=== PATIENT | female | born 1985 | race Caucasian/White ===

== ENCOUNTER 2017-05-10 08:18 | Inpatient (IN) | payer OTHER ==
[2017-05-10] MEDS: Lactated Ringers 1,000 ML IV SCH (23:25)
[2017-05-11] MEDS ORDERED: Ondansetron 4 MG/2 ML SDV IV PRN (00:19)
[2017-05-11] MEDS ORDERED: Sodium Chloride 0.9% 10 ML Syringe FLUSH PRN ×2 (00:19→08:00)
[2017-05-11] MEDS ORDERED: Promethazine 25 MG/ML SDV IM PRN (00:19)
[2017-05-11] MEDS ORDERED: Oxytocin/Normal Saline 30 UNIT/500 ML BAG IV SCH ×2 (00:30→08:15)
[2017-05-11] MEDS: Omeprazole 20 MG Cap.CR PO SCH ×2 (00:52→18:29)
--- NOTE | 2017-05-11 01:27 | HP ---
CHIEF COMPLAINT: "My water broke." HISTORY OF PRESENT ILLNESS: Ms. Montero is a 31-year-old, 3, para 2-0-0- 2 female, who reports to the [facility] in [place] with complaint of rupture of membranes of clear fluid. This occurred about 2200 hours. Her last menstrual period, 08/10/2016; EDC, 05/17/2017; EGA, 39 weeks' gestation. She states that she had a trial of an external cephalic version because she was breech and this failed. She was going to have a section on 05/16/2017. We had an ultrasound accomplished after arrival and she was noted to be vertex. She has some GERD symptoms but other than that, no nausea, vomiting, or diarrhea. No fever or chills. No vaginal bleeding or regular contractions. No hematochezia, hematemesis, or hematuria. No dysuria, frequency, or urgency with urination. No leg pain, leg edema, abdominal pain, or back pain. Her has gone quite well with no complications or concerns. PAST MEDICAL HISTORY: She has history of acne, anxiety, depression, asthma, GERD, low back pain, migraine headaches, and panic attacks. No history of hypertension, diabetes, thyroid disease, seizure disorder, thromboembolic disease, or blood transfusions. No history of breast lesions. FAMILY HISTORY: Positive for hypertension, hypertriglyceridemia, thyroid disease, multiple myeloma, diabetes, and colon cancer. SOCIAL HISTORY: The patient is , spouse is Carmelo. She works for [employer] in [place]. She denies any tobacco use, alcohol use, or illicit drug use. OBSTETRICAL HISTORY: On 06/29/2010; delivery of a viable female , weighing 3175 g at 39 and 5/7 weeks' gestation via normal spontaneous vaginal delivery. On 12/10/2013; delivery of a viable male infant, vacuum-assisted vaginal delivery of a 3965 g male . LABORATORY DATA: Blood type A positive. Antibody screen negative. Rubella immune. RPR nonreactive. Hepatitis B surface antigen negative. HIV nonreactive. Group B strep vaginal culture negative. MEDICATIONS: 1. Omeprazole 20 mg daily. 2. vitamin with iron one tab daily. ALLERGIES: Ceclor, theophylline, aspirin causes stomach upset. PAST SURGICAL HISTORY: Appendectomy, July of 2016. REVIEW OF SYSTEMS: All pertinent positive and negative review of systems per HPI. All other systems reviewed and are negative. The 10-point review of systems discussed with the patient, she has no issues. OBJECTIVE: General: A well-developed, well-nourished female, in no acute distress. Vital Signs: Stable. Afebrile. HEENT: Unremarkable. PERRLA. Neck: Supple without adenopathy. No thyromegaly. Lungs: Clear to auscultation. No wheezing, rhonchi, or rales noted. Cardiovascular: Regular rate and rhythm without murmurs. Abdomen: Soft, gravid, nontender. heart tones 130s to 140s. Occasional contraction noted. Category 1 strip with good accelerations. Back: No CVA tenderness. : Cervix is 2 cm dilated, 70% effaced, -2 station. Mid posterior vertex presentation. Extremities: No edema, erythema, or tenderness noted. ASSESSMENT: 1. A 39 weeks' intrauterine . 2. Spontaneous rupture of membranes. 3. Vertex presentation. PLAN: 1. Admit to Labor and Delivery. 2. We will start Pitocin augmentation once she has been ruptured for 3 hours and if she is not gabe regularly. 3. Expectant management otherwise, expecting a vaginal delivery. [facility] /[id number]
[2017-05-11] MEDS: Lactated Ringers 1,000 ML IV SCH (04:35)
[2017-05-11] MEDS ORDERED: fentaNYL 100 MCG/2 ML SDV ONE (04:37)
--- NOTE | 2017-05-11 05:13 | PCM.PRNOTE ---
- Free Text/Narrative Note: Requested to provide analgesia to full term patient in severe pain. Upon entering the room, pt is lying left side complaining of severe abdominal pain and discomfort. Procedure was discussed with pt including adverse outcomes and expectations. Pt consented to analgesia, SAB/IT. Pt placed into a sitting position. Landmarks for SAB/IT were identified and marked. Back was prepped with betadine x3. A sterile, transparent, fenistrated drape was applied. Excess betadine was removed. Using 1 mL of a 2% lidocaine solution, a skin wheel was placed at the L3/L4 interspace. Using a 24 ga pencan spinal needle (4 inch), needle was inserted until positive for CSF. Negative for heme or paresthesias. Injected fentanly 20 mcg, sufenta 10 mcg, and 10 mg of a 0.75% bupivicaine solution with an epi wash. Pt was placed left lateral position. There were zero complications or adverse outcomes.
[2017-05-11] MEDS ORDERED: Benzocaine/Menthol 20%-0.5% Spray 56 GM Canister TOP PRN (08:00)
[2017-05-11] MEDS ORDERED: Acetaminophen 325 MG Tab PO PRN (08:00)
[2017-05-11] MEDS ORDERED: Zolpidem 5 MG Tab PO PRN (08:00)
[2017-05-11] MEDS ORDERED: Carboprost Tromethamine 250 MCG/1 ML Amp IM PRN (08:00)
[2017-05-11] MEDS ORDERED: Misoprostol 400 MCG (4 X 100 MCG TAB) RECTAL PRN (08:00)
--- NOTE | 2017-05-11 08:00 | PCM.PNLD ---
Labor Progress Note - VS & Meds Vital Signs: Last Vital Signs Temp 97.8 F 05/11/17 07:00 Pulse 80 05/11/17 07:15 Resp 20 05/11/17 07:15 BP 146/81 H 05/11/17 07:15 Pulse Ox 98 05/11/17 06:30 Active Medications: Current Medications Lactated Ringer's (Ringers, Lactated) 1,000 mls @ 125 mls/hr IV ASDIRECTED SABINA Last Admin: 05/11/17 04:35 Dose: 125 mls/hr Oxytocin/Sodium Chloride (Pitocin In Ns 30 Unit/500 Ml) 30 unit in 500 mls @ 2 mls/hr IV TITRATE SABINA; 2 MUNITS/MIN PRN Reason: Protocol Last Titration: 05/11/17 07:43 Dose: 14 mls/hr Omeprazole (Omeprazole) 20 mg PO Q12H SABINA Last Admin: 05/11/17 00:52 Dose: 20 mg Ondansetron HCl (Zofran) 4 mg IV Q4H PRN PRN Reason: Nausea/Vomiting Last Admin: 05/11/17 04:24 Dose: 4 mg Promethazine HCl (Phenergan) 25 mg IM Q4H PRN PRN Reason: Nausea/Vomiting Sodium Chloride (Saline Flush) 10 ml FLUSH ASDIRECTED PRN PRN Reason: Keep Vein Open Discontinued Medications Fentanyl (Sublimaze) Confirm Administered Dose 100 mcg .ROUTE .STK-MED ONE Stop: 05/11/17 04:38 Sufentanil Citrate (Sufenta) Confirm Administered Dose 50 mcg .ROUTE .STK-MED ONE Stop: 05/11/17 04:39 - Uterine Contractions Uterine Monitoring Mode: External [place] Contraction Frequency (min): 1.5-3 Contraction Duration (sec): 60-100 Contraction Intensity: Strong Uterine Resting Tone: Soft - Monitoring Heart Rate (FHR) Baseline: 140 Heart Rate (FHR) Variability: Moderate (6-25 bmp) Accelerations: Present, 15x15 Decelerations: Variable, Intermittent (<50% x 20 min) Strip Review: Category I - Vaginal Exam Dilation (cm): 7 Effacement (Percent): 80 Station: -2 Cervical Position: Midposition Sterile Vaginal Exam Performed By: Ramy Chapa - Labor Progress (Free Text) Labor Progress: Patient is uncomfortable with contractions despite having a intrathecal for pain control. Pitocin at 12 mu/min. No fever or chills. No nausea, vomiting or diarrhea. She is breathing through contractions and starting to feel some pressure. Continue present care. Expect vaginal delivery soon. Fetus is OP.
--- NOTE | 2017-05-11 08:05 | PCM.PNLD ---
Labor Progress Note - VS & Meds Vital Signs: Last Vital Signs Temp 98.8 F 05/11/17 04:55 Pulse 79 05/11/17 06:45 Resp 16 05/11/17 06:45 BP 140/82 05/11/17 06:45 Pulse Ox 98 05/11/17 06:30 Active Medications: Current Medications Lactated Ringer's (Ringers, Lactated) 1,000 mls @ 125 mls/hr IV ASDIRECTED SABINA Last Admin: 05/11/17 04:35 Dose: 125 mls/hr Oxytocin/Sodium Chloride (Pitocin In Ns 30 Unit/500 Ml) 30 unit in 500 mls @ 2 mls/hr IV TITRATE SABINA; 2 MUNITS/MIN PRN Reason: Protocol Last Titration: 05/11/17 07:16 Dose: 12 mls/hr Omeprazole (Omeprazole) 20 mg PO Q12H SABINA Last Admin: 05/11/17 00:52 Dose: 20 mg Ondansetron HCl (Zofran) 4 mg IV Q4H PRN PRN Reason: Nausea/Vomiting Last Admin: 05/11/17 04:24 Dose: 4 mg Promethazine HCl (Phenergan) 25 mg IM Q4H PRN PRN Reason: Nausea/Vomiting Sodium Chloride (Saline Flush) 10 ml FLUSH ASDIRECTED PRN PRN Reason: Keep Vein Open Discontinued Medications Fentanyl (Sublimaze) Confirm Administered Dose 100 mcg .ROUTE .STK-MED ONE Stop: 05/11/17 04:38 Sufentanil Citrate (Sufenta) Confirm Administered Dose 50 mcg .ROUTE .STK-MED ONE Stop: 05/11/17 04:39 - Uterine Contractions Uterine Monitoring Mode: External [place] Contraction Frequency (min): 2-2.5 Contraction Duration (sec): 70-80 Contraction Intensity: Moderate Uterine Resting Tone: Soft - Monitoring Heart Rate (FHR) Baseline: 140 Heart Rate (FHR) Variability: Moderate (6-25 bmp) Accelerations: Present, 15x15 Decelerations: Variable, Intermittent (<50% x 20 min) Strip Review: Category I - Vaginal Exam Dilation (cm): 7 Effacement (Percent): 80 Station: -2 Cervical Position: Midposition Sterile Vaginal Exam Performed By: Ramy Chapa
[2017-05-11] MEDS ORDERED: Lidocaine 1% 30 ML SDV INJECT ONE (08:08)
--- NOTE | 2017-05-11 08:36 | PCM.DEL ---
L & D Note - General Info Date of Service: 05/11/17 (39 3/7 week intrauterine ) Mother's Due Date: 05/16/17 - Delivery Note Labor: Augmented by Oxytocin Delivery Outcome: Livebirth Infant Delivery Method: Spontaneous Vaginal Delivery-Single Infant Delivery Mode: Spontaneous Presentation: Left Occiput Anterior (ELOY) Nuchal Cord: None Anesthesia Type: Intrathecal Amniotic Fluid Description: Clear Placenta: Intact, Spontaneous Cord: 3 Vessels Estimated Blood Loss: 300 Resuscitation Needed: No : Suctioned, Bulb Syringe, Stimulated, Warmed, [place] Used, Warmer Used Provider: Ramy Chapa Score 1 min: 9 Score 5 min: 9 Second Stage Interventions: Reports: Second Nurse Assessed Progress of Descent, Second Nurse Reviewed Contraction Pattern, Second Nurse Reviewed Heart Tones, Encouragement Given, Pushing Effectively, Pushing, Feet in Foot Rests, Pushing, Knee Chest Position Delivery Comments (Free Text/Narrative):: DATE OF PROCEDURE:- 05/11/2017 TIME: 0818 . ELOY, Viable male over intact perineum Cord 3 vessel not around neck. Placenta delivered by simple expression intact. Labia, Vagina and cervix inspected and intact. Mother and infant in good condition. Weight- 7 lbs 8oz, Length- 19 3/4 inches 's- 9 and 9. Mother recovers for 2 hours and the infant taken to the nursery for recovery. No complications. - Patient Data Vitals - Most Recent: Last Vital Signs Temp 97.8 F 05/11/17 07:00 Pulse 80 05/11/17 07:15 Resp 20 05/11/17 07:15 BP 146/81 H 05/11/17 07:15 Pulse Ox 98 05/11/17 06:30 Weight - Most Recent: 220 lb I&O - Last 24 Hours: Intake & Output 05/10/17 05/11/17 05/11/17 22:59 06:59 14:59 Intake Total 1000 Balance 1000 Lab Results Last 24 Hours: Laboratory Results - last 24 hr 05/10/17 Range/Units 23:20 WBC 8.6 (5.0-10.0) 10^3/uL RBC 3.86 L (4.2-5.4) 10^6/uL Hgb 12.0 (12.0-16.0) g/dL Hct 35.0 L (37.0-47.0) % MCV 90.7 (80-100) fL MCH 31.1 (27.0-34.0) pg MCHC 34.3 (33.0-35.0) g/dL Plt Count 183 (150-450) 10^3/uL Neut % (Auto) 59.9 (42.2-75.2) % Lymph % (Auto) 29.1 (20.5-50.1) % Graves % (Auto) 10.1 H (2-8) % Eos % (Auto) 0.6 L (1.0-3.0) % Baso % (Auto) 0.3 (0.0-1.0) % Med Orders - Current: Current Medications Acetaminophen (Tylenol) 650 mg PO Q6H PRN PRN Reason: mild pain or fever Benzocaine/Menthol (Dermoplast Pain Relief [place]) 0 gm TOP Q4H PRN PRN Reason: Perineal comfort measures Carboprost Tromethamine (Hemabate Ds) 250 mcg IM ASDIRECTED PRN PRN Reason: Excessive vaginal bleeding Docusate Sodium (Colace) 100 mg PO BID PRN PRN Reason: Constipation Ferrous Sulfate (Ferrous Sulfate) 325 mg PO WITHBREAKFAST SABINA Lactated Ringer's (Ringers, Lactated) 1,000 mls @ 125 mls/hr IV ASDIRECTED SABINA Last Admin: 05/11/17 04:35 Dose: 125 mls/hr Oxytocin/Sodium Chloride (Pitocin In Ns 30 Unit/500 Ml) 30 unit in 500 mls @ 2 mls/hr IV TITRATE SABINA; 2 MUNITS/MIN PRN Reason: Protocol Last Titration: 05/11/17 07:43 Dose: 14 mls/hr Oxytocin/Sodium Chloride (Pitocin In Ns 30 Unit/500 Ml) 30 unit in 500 mls @ 999 mls/hr IV TITRATE SABINA; 999 MUNITS/MIN PRN Reason: Protocol Ibuprofen (Motrin) 800 mg PO Q8H PRN PRN Reason: Mild Pain or Fever Misoprostol (Cytotec) 800 mcg RECTAL ONETIME PRN PRN Reason: Hemorrhage Omeprazole (Omeprazole) 20 mg PO Q12H SABINA Last Admin: 05/11/17 00:52 Dose: 20 mg Ondansetron HCl (Zofran) 4 mg IV Q4H PRN PRN Reason: Nausea/Vomiting Last Admin: 05/11/17 04:24 Dose: 4 mg Prenat Multivit/[place]/Iron/Folic Ac ( Plus Iron) 1 each PO DAILY SABINA Promethazine HCl (Phenergan) 25 mg IM Q4H PRN PRN Reason: Nausea/Vomiting Simethicone (Simethicone) 80 mg PO Q4H PRN PRN Reason: Gas Sodium Chloride (Saline Flush) 10 ml FLUSH ASDIRECTED PRN PRN Reason: Keep Vein Open Sodium Chloride (Saline Flush) 10 ml FLUSH ASDIRECTED PRN PRN Reason: Keep Vein Open Zolpidem Tartrate (Ambien) 5 mg PO BEDTIME PRN PRN Reason: Insomnia Discontinued Medications Fentanyl (Sublimaze) Confirm Administered Dose 100 mcg .ROUTE .STK-MED ONE Stop: 05/11/17 04:38 Lidocaine HCl (Xylocaine-Mpf 1%) 30 ml INJECT ONETIME ONE Stop: 05/11/17 08:09 Sufentanil Citrate (Sufenta) Confirm Administered Dose 50 mcg .ROUTE .STK-MED ONE Stop: 05/11/17 04:39 - Problem List Review Problem List Initiated/Reviewed/Updated: Yes - My Orders Last 24 Hours: My Active Orders 05/10/17 23:10 OB Ltd 1 or More Fetus [US] Routine 05/11/17 00:19 Patient Status [ADT] Routine Bedrest Bathroom Privileges [RC] ASDIRECTED Heart Tones [RC] INTERMITTENT May Shower [RC] ASDIRECTED Notify Provider Vital Signs OB [RC] ASDIRECTED Notify Provider [RC] PRN Up ad Katia [RC] ASDIRECTED Vital Signs [RC] PER UNIT ROUTINE Ondansetron [Zofran] 4 mg IV Q4H PRN Promethazine [Phenergan] 25 mg IM Q4H PRN Sodium Chloride 0.9% [Saline Flush] 10 ml FLUSH ASDIRECTED PRN Peripheral IV Insertion Adult [OM.PC] Routine Resuscitation Status Routine 05/11/17 00:25 Peripheral IV Care [RC] 08,20 05/11/17 00:30 Lactated Ringers [Ringers, Lactated] 1,000 ml IV ASDIRECTED Omeprazole 20 mg PO Q12H Oxytocin/Normal Saline [Pitocin in NS 30 UNIT/500 ML] 30 unit in 500 ml IV TITRATE 05/11/17 08:00 Up ad Katia [RC] ASDIRECTED Acetaminophen [Tylenol] 650 mg PO Q6H PRN Benzocaine/Menthol [Dermoplast Pain Relief [place]] See Dose Instructions TOP Q4H PRN Carboprost Tromethamine [Hemabate DS] 250 mcg IM ASDIRECTED PRN Docusate Sodium [Colace] 100 mg PO BID PRN Ferrous Sulfate 325 mg PO WITHBREAKFAST Ibuprofen [Motrin] 800 mg PO Q8H PRN Misoprostol [Cytotec] 800 mcg RECTAL ONETIME PRN Simethicone 80 mg PO Q4H PRN Sodium Chloride 0.9% [Saline Flush] 10 ml FLUSH ASDIRECTED PRN Zolpidem [Ambien] 5 mg PO BEDTIME PRN Assess Lochia [WOMSER] Per Unit Routine Assess Uterine Involution [WOMSER] Per Unit Routine Breast Pump [WOMSER] Per Unit Routine Ice Therapy [OM.PC] Per Unit Routine Perineal Care [OM.PC] Per Unit Routine Saline Lock Insert [OM.PC] Urgent Sitz Bath [OM.PC] Per Unit Routine 05/11/17 08:01 Peripheral IV Discontinue [OM.PC] Routine 05/11/17 08:15 Oxytocin/Normal Saline [Pitocin in NS 30 UNIT/500 ML] 30 unit in 500 ml IV TITRATE 05/11/17 09:00 Vit with Ca/FA/Iron [ Plus Iron] 1 each PO DAILY 05/11/17 Breakfast Clear Liquid Diet [DIET] 05/11/17 Lunch Regular Diet [DIET] 05/12/17 08:00 CBC W/O DIFF,HEMOGRAM [HEME] Routine
[2017-05-11] MEDS: Ibuprofen 800 MG Tab PO PRN ×2 (10:29→20:59)
[2017-05-11] MEDS: Simethicone 80 MG Tab.Chew PO PRN ×2 (10:29→18:29)
[2017-05-11] MEDS: Prenatal Multivitamin with Calcium/Folic Acid/Iron Tab PO SCH (10:29)
[2017-05-11] MEDS: Docusate Sodium 100 MG Cap PO PRN ×2 (10:30→20:59)
[2017-05-11] MEDS: Ferrous Sulfate 325 MG Tab PO SCH (18:29)
[2017-05-12] MEDS: Omeprazole 20 MG Cap.CR PO SCH ×2 (02:32→14:28)
[2017-05-12 08:07] VITALS: BP 114/71
[2017-05-12] MEDS: Ferrous Sulfate 325 MG Tab PO SCH (09:23)
[2017-05-12] MEDS: Prenatal Multivitamin with Calcium/Folic Acid/Iron Tab PO SCH (09:23)
[2017-05-12] MEDS: Ibuprofen 800 MG Tab PO PRN (09:23)
[2017-05-12] MEDS: Docusate Sodium 100 MG Cap PO PRN (09:23)
--- NOTE | 2017-05-12 11:06 | PCM.PNPP ---
- General Info Date of Service: 05/12/17 (PPD # 1 S/P ) Functional Status: Reports: Pain Controlled, Tolerating Diet, Ambulating - Review of Systems General: Reports: No Symptoms HEENT: Reports: No Symptoms Pulmonary: Reports: No Symptoms Cardiovascular: Reports: No Symptoms Gastrointestinal: Reports: No Symptoms Genitourinary: Reports: No Symptoms Musculoskeletal: Reports: No Symptoms Skin: Reports: No Symptoms Neurological: Reports: No Symptoms Psychiatric: Reports: No Symptoms - General Info Date of Service: 05/12/17 (PPD # 1 S/P ) - Patient Data Vital Signs - Most Recent: Last Vital Signs Temp 98.0 F 05/12/17 08:00 Pulse 76 05/12/17 08:00 Resp 18 05/12/17 08:00 BP 114/71 05/12/17 08:00 Pulse Ox 100 05/12/17 08:00 Weight - Most Recent: 220 lb Lab Results - Last 24 Hours: Laboratory Results - last 24 hr 05/12/17 Range/Units 06:05 WBC 8.2 (5.0-10.0) 10^3/uL RBC 3.75 L (4.2-5.4) 10^6/uL Hgb 11.5 L (12.0-16.0) g/dL Hct 35.0 L (37.0-47.0) % MCV 93.3 (80-100) fL MCH 30.7 (27.0-34.0) pg MCHC 32.9 L (33.0-35.0) g/dL Plt Count 146 L (150-450) 10^3/uL Med Orders - Current: Current Medications Acetaminophen (Tylenol) 650 mg PO Q6H PRN PRN Reason: mild pain or fever Last Admin: 05/11/17 18:30 Dose: 650 mg Benzocaine/Menthol (Dermoplast Pain Relief [place]) 0 gm TOP Q4H PRN PRN Reason: Perineal comfort measures Carboprost Tromethamine (Hemabate Ds) 250 mcg IM ASDIRECTED PRN PRN Reason: Excessive vaginal bleeding Docusate Sodium (Colace) 100 mg PO BID PRN PRN Reason: Constipation Last Admin: 05/12/17 09:23 Dose: 100 mg Ferrous Sulfate (Ferrous Sulfate) 325 mg PO WITHBREAKFAST SABINA Last Admin: 05/12/17 09:23 Dose: 325 mg Lactated Ringer's (Ringers, Lactated) 1,000 mls @ 125 mls/hr IV ASDIRECTED SABINA Last Admin: 05/11/17 04:35 Dose: 125 mls/hr Oxytocin/Sodium Chloride (Pitocin In Ns 30 Unit/500 Ml) 30 unit in 500 mls @ 2 mls/hr IV TITRATE SABINA; 2 MUNITS/MIN PRN Reason: Protocol Last Titration: 05/11/17 09:50 Dose: Infused Oxytocin/Sodium Chloride (Pitocin In Ns 30 Unit/500 Ml) 30 unit in 500 mls @ 999 mls/hr IV TITRATE SABINA; 999 MUNITS/MIN PRN Reason: Protocol Ibuprofen (Motrin) 800 mg PO Q8H PRN PRN Reason: Mild Pain or Fever Last Admin: 05/12/17 09:23 Dose: 800 mg Misoprostol (Cytotec) 800 mcg RECTAL ONETIME PRN PRN Reason: Hemorrhage Omeprazole (Omeprazole) 20 mg PO Q12H SABINA Last Admin: 05/12/17 02:32 Dose: Not Given Ondansetron HCl (Zofran) 4 mg IV Q4H PRN PRN Reason: Nausea/Vomiting Last Admin: 05/11/17 04:24 Dose: 4 mg Prenat Multivit/[employer]/Iron/Folic Ac ( Plus Iron) 1 each PO DAILY SABINA Last Admin: 05/12/17 09:23 Dose: 1 each Promethazine HCl (Phenergan) 25 mg IM Q4H PRN PRN Reason: Nausea/Vomiting Simethicone (Simethicone) 80 mg PO Q4H PRN PRN Reason: Gas Last Admin: 05/11/17 18:29 Dose: 80 mg Sodium Chloride (Saline Flush) 10 ml FLUSH ASDIRECTED PRN PRN Reason: Keep Vein Open Sodium Chloride (Saline Flush) 10 ml FLUSH ASDIRECTED PRN PRN Reason: Keep Vein Open Zolpidem Tartrate (Ambien) 5 mg PO BEDTIME PRN PRN Reason: Insomnia Discontinued Medications Fentanyl (Sublimaze) Confirm Administered Dose 100 mcg .ROUTE .STK-MED ONE Stop: 05/11/17 04:38 Last Admin: 05/11/17 09:57 Dose: Not Given Lidocaine HCl (Xylocaine-Mpf 1%) 30 ml INJECT ONETIME ONE Stop: 05/11/17 08:09 Last Admin: 05/11/17 10:09 Dose: Not Given Sufentanil Citrate (Sufenta) Confirm Administered Dose 50 mcg .ROUTE .STK-MED ONE Stop: 05/11/17 04:39 Last Admin: 05/11/17 09:58 Dose: Not Given - Infant Interaction Infant Disposition, : in Room with Family Infant Interaction: Holding Infant Feeding: Bottle Fed Infant Support Person: - Recovery Exam Fundal Tone: Firm Fundal Level: 1 Fingerbreadths Below Umbilicus Fundal Placement: Midline Lochia Amount: Small Lochia Color: Rubra/Red Perineum Description: Intact, Minimal Bruising/Swelling Episiotomy/Laceration: None Bladder Status: Nonpalpable, Voiding Urinary Elimination: Voided - Exam General: Alert, Oriented, Cooperative, No Acute Distress HEENT: Pupils Equal, Pupils Reactive, EOMI, Mucous Membr. Moist/[place] Neck: Supple Lungs: Clear to Auscultation, Normal Respiratory Effort Cardiovascular: Regular Rate, Regular Rhythm, No Murmurs GI/Abdominal Exam: Normal Bowel Sounds, Soft, Non-Tender, No Distention Extremities: Normal Inspection, Normal Range of Motion, Non-Tender, No Pedal Edema Skin: Warm, Dry, Intact Neurological: No New Focal Deficit Psy/Mental Status: Alert, Normal Affect, Normal Mood - Problem List & Annotations (1) Normal vaginal delivery SNOMED Code(s): 90848042 Code(s): O80 - ENCOUNTER FOR FULL-TERM UNCOMPLICATED DELIVERY Status: Acute Current Visit: Yes - Problem List Review Problem List Initiated/Reviewed/Updated: Yes - My Orders Last 24 Hours: My Active Orders 05/11/17 Lunch Regular Diet [DIET] 05/12/17 10:56 Ready for Discharge [RC] PER UNIT ROUTINE - Assessment Assessment:: PPD # 1 S/P Doing well Ready for discharge - Plan Plan:: Discharge to home Follow-up with Dr. Joya at recheck All questions answered. Motrin/Tylenol for discomfort.
[2017-05-12] MEDS ORDERED: fentaNYL 100 MCG/2 ML SDV ITHECAL ONE (12:49)
--- NOTE | 2017-05-13 07:19 | DISCH ---
INDICATION FOR ADMISSION: Ms. Montero is a 31-year-old, 3, para 2-0-0-2 female, who reported to [facility] in [facility] with spontaneous rupture of membranes at 39 weeks' gestation. She was started on Pitocin augmentation and tolerated her labor quite well. Once she got uncomfortable, intrathecal anesthesia was given. Once she got to complete, she had a normal spontaneous vaginal delivery of a viable male , weighing 7 pounds 8 ounces, 19-3/4 inches long with Apgars of 9 at 1 minute, 9 at 5 minutes. She recovered. The infant went to the nursery. No complications occurred throughout her hospital stay. She was afebrile. Vital signs are stable. She tolerated her diet well and ambulated quite well. She was discharged to home on day #1. LABORATORY AND DIAGNOSTIC STUDIES: 05/10/2017; WBC 8.6, hemoglobin 12.0, hematocrit 35, and platelet count 183,000. 05/12/2017; WBC 8.2, hemoglobin 11.5, hematocrit 35.0, and platelet count 146,000. DISCHARGE INSTRUCTIONS: 1. Discharge to home. 2. Follow up with Dr. Alisia Joya at 6-week checkup or sooner if problems develop. 3. No douching, tampons, or intercourse for 6 weeks. 4. Discharge instructions including activity, followup, medications, and diet were discussed with the patient. She understands these and is willing to comply with these. 5. Motrin 800 mg, 1 tab every 6 to 8 hours p.r.n. for pain. 6. Tylenol p.r.n. for pain. DISCHARGE DIAGNOSES: 1. A 39-week intrauterine . 2. Spontaneous rupture of membranes. 3. Pitocin augmentation. 4. Normal spontaneous vaginal delivery of a viable male , weighing 7 pounds 8 ounces, 19-3/4 inches long with Apgars of 9 at 1 minute and 9 at 5 minutes. 5. Intrathecal anesthesia. [facility] /[id number]
== END 2017-05-12 12:50 | disposition home or self-care (01) | DRG 775 ==
LOC: DL.OB 08:18 → OBSVTOIN 05-11 08:18
PROVIDERS: ADMIT Obstetrics & Gynecology; ATTEND Obstetrics & Gynecology
PROC: 10E0XZZ Delivery of Products of Conception, External Approach (ICD-10-PCS; principal; 2017-05-11)
PROC: 4A1HXFZ Monitoring of Products of Conception, Cardiac Rhythm, External Approach (ICD-10-PCS; 2017-05-11)
DX: O42.02 Full-term premature rupture of membranes, onset of labor within 24 hours of rupture (principal); Z3A.39 39 weeks gestation of pregnancy; Z37.0 Single live birth; O75.89 Other specified complications of labor and delivery; K21.9 Gastro-esophageal reflux disease without esophagitis
CPT/HCPCS: 36415; 76815; 83986; 85025; 85027; A9270-GY; J2405; J2590; J3010; J7120

== ENCOUNTER 2017-05-16 21:22 | Emergency (ER) | payer OTHER, SELFPAY ==
[2017-05-16 21:39] VITALS: BP 155/78
[2017-05-16 23:14] LABS: CHLORIDE,CL 102 mmol/L (101-111); SODIUM,NA 138 mmol/L (135-145)
[2017-05-16] MEDS ORDERED: Acetaminophen 325 MG Tab PO ONE (23:36)
[2017-05-16] MEDS ORDERED: Iopamidol 755 Mg/ML 100 ML Bottle IVPUSH ONE (23:36)
--- NOTE | 2017-05-16 23:41 | EDM.PDOC ---
ED HPI GENERAL MEDICAL PROBLEM - General Chief Complaint: Fever Stated Complaint: HX OF ,HIGH FEVER, CHILLS, [id number] Time Seen by Provider: 05/16/17 23:37 Source of Information: Reports: Patient History Limitations: Reports: No Limitations - History of Present Illness INITIAL COMMENTS - FREE TEXT/NARRATIVE: c/o bilateral shoulder pain since PP x 5 days, now with fever but no SOB. 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 Lower Back Pain Score (Numeric/FACES): 5 Lower Abdomen Pain Score (Numeric/FACES): 4 - Related Data Allergies Allergy/AdvReac Type Severity Reaction Status Date / Time aspirin Allergy Nausea Verified 05/16/17 21:58 cefaclor [From Ceclor] Allergy Rash Verified 05/16/17 21:58 theophylline anhydrous Allergy Rash Verified 05/16/17 21:58 [From Theolair] Home Meds: Home Meds Omeprazole [Prilosec] 20 mg PO DAILY 12/10/13 [History] Past Medical History - Past Health History Medical/Surgical History: Denies Medical/Surgical History Gastrointestinal History: Reports: GERD 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: , 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 (See Below) Other OB/BYN History: on 05/11/17 - Past Surgical History HEENT Surgical History: Reports: Tonsillectomy GI Surgical History: Reports: Appendectomy Social & Family History - Tobacco Use Smoking Status *Q: Former Smoker Years of Tobacco use: 10 Used Tobacco, but Quit: Yes Month Tobacco Last Used: 2 years ago Second Hand Smoke Exposure: No - Caffeine Use Caffeine Use: Reports: Coffee, Soda - Alcohol Use Days Per Week of Alcohol Use: 0 - Recreational Drug Use Recreational Drug Use: No ED ROS GENERAL - Review of Systems Review Of Systems: ROS reveals no pertinent complaints other than HPI. ED EXAM, GENERAL - Physical Exam Exam: See Below Exam Limited By: No Limitations General Appearance: Alert, WD/WN, Mild Distress, Other (shoulder pain) Ears: Hearing Grossly Normal Throat/Mouth: Normal Voice, No Airway Compromise Head: Atraumatic Neck: Non-Tender, Full Range of Motion Respiratory/Chest: No Respiratory Distress, Lungs Clear, Normal Breath Sounds Cardiovascular: Regular Rate, Rhythm GI/Abdominal: Soft, Non-Tender Neurological: Alert, Oriented, Normal Cognition, Normal Gait, No Motor/Sensory Deficits Psychiatric: Normal Affect, Normal Mood Skin Exam: Warm, Dry, Normal Color Lymphatic: No Adenopathy Course - Vital Signs Last Recorded V/S: Last Vital Signs Temp 38.3 C H 05/16/17 21:30 Pulse 106 H 05/16/17 21:30 Resp 21 H 05/16/17 21:30 BP 155/78 H 05/16/17 21:30 Pulse Ox 99 05/16/17 21:30 - Orders/Labs/Meds Orders: Active Orders 24 hr Category Date Time Status EKG 12 Lead [EKG Documentation Completion] [RC] STAT Care 05/17/17 01:27 Active CULTURE BLOOD [BC] Stat Lab 05/16/17 22:05 Received Labs: Laboratory Tests 05/16/17 05/16/17 05/16/17 Range/Units 21:45 22:05 22:05 WBC 9.4 (5.0-10.0) 10^3/uL RBC 4.56 (4.2-5.4) 10^6/uL Hgb 14.1 D (12.0-16.0) g/dL Hct 42.0 (37.0-47.0) % MCV 92.1 (80-100) fL MCH 30.9 (27.0-34.0) pg MCHC 33.6 (33.0-35.0) g/dL Plt Count 182 (150-450) 10^3/uL Neut % (Auto) 83.0 H (42.2-75.2) % Lymph % (Auto) 10.5 L (20.5-50.1) % [place] % (Auto) 5.9 (2-8) % Eos % (Auto) 0.4 L (1.0-3.0) % Baso % (Auto) 0.2 (0.0-1.0) % D-Dimer, Quantitative 1360 H (0-400) ng/mL Sodium (135-145) mmol/L Potassium (3.6-5.0) mmol/L Chloride (101-111) mmol/L Carbon Dioxide (21.0-31.0) mmol/L Anion Gap BUN (7-18) mg/dL Creatinine (0.6-1.3) mg/dL Est Cr Clr Drug Dosing mL/min Estimated GFR (MDRD) BUN/Creatinine Ratio Glucose (74-105) mg/dL Lactic Acid (0.5-2.2) mmol/L Calcium (8.4-10.2) mg/dl Total Bilirubin (0.2-1.0) mg/dL AST (10-42) IU/L ALT (10-60) IU/L Alkaline Phosphatase (42-121) IU/L Total Protein (6.7-8.2) g/dl Albumin (3.2-5.5) g/dl Globulin Albumin/Globulin Ratio Urine Color Yellow (YELLOW) Urine Appearance Slightly cloudy (CLEAR) Urine pH 8.5 (5.0-9.0) Ur Specific [place] 1.020 (1.005-1.030) Urine Protein Negative (NEGATIVE) Urine Glucose (UA) Negative (NEGATIVE) Urine Ketones Negative (NEGATIVE) Urine Occult Blood Large H (NEGATIVE) Urine Nitrite Negative (NEGATIVE) Urine Bilirubin Negative (NEGATIVE) Urine Urobilinogen 1.0 (0.2-1.0) mg/dL Ur Leukocyte Esterase Moderate H (NEGATIVE) Urine RBC 20-30 H /HPF Urine WBC 10-20 H (0-5/HPF) /HPF Ur Epithelial Cells Rare /HPF Urine Bacteria Rare (0-FEW/HPF) /HPF 05/16/17 05/16/17 Range/Units 22:05 22:05 WBC (5.0-10.0) 10^3/uL RBC (4.2-5.4) 10^6/uL Hgb (12.0-16.0) g/dL Hct (37.0-47.0) % MCV (80-100) fL MCH (27.0-34.0) pg MCHC (33.0-35.0) g/dL Plt Count (150-450) 10^3/uL Neut % (Auto) (42.2-75.2) % Lymph % (Auto) (20.5-50.1) % [place] % (Auto) (2-8) % Eos % (Auto) (1.0-3.0) % Baso % (Auto) (0.0-1.0) % D-Dimer, Quantitative (0-400) ng/mL Sodium 138 (135-145) mmol/L Potassium 3.5 L (3.6-5.0) mmol/L Chloride 102 (101-111) mmol/L Carbon Dioxide 25.0 (21.0-31.0) mmol/L Anion Gap 14.5 BUN 9 (7-18) mg/dL Creatinine 0.6 (0.6-1.3) mg/dL Est Cr Clr Drug Dosing 122.25 mL/min Estimated GFR (MDRD) > 60 BUN/Creatinine Ratio 15.00 Glucose 94 (74-105) mg/dL Lactic Acid 1.9 (0.5-2.2) mmol/L Calcium 9.4 (8.4-10.2) mg/dl Total Bilirubin 0.7 (0.2-1.0) mg/dL AST 32 (10-42) IU/L ALT 37 (10-60) IU/L Alkaline Phosphatase 86 (42-121) IU/L Total Protein 7.6 (6.7-8.2) g/dl Albumin 3.7 (3.2-5.5) g/dl Globulin 3.9 Albumin/Globulin Ratio 0.95 Urine Color (YELLOW) Urine Appearance (CLEAR) Urine pH (5.0-9.0) Ur Specific [place] (1.005-1.030) Urine Protein (NEGATIVE) Urine Glucose (UA) (NEGATIVE) Urine Ketones (NEGATIVE) Urine Occult Blood (NEGATIVE) Urine Nitrite (NEGATIVE) Urine Bilirubin (NEGATIVE) Urine Urobilinogen (0.2-1.0) mg/dL Ur Leukocyte Esterase (NEGATIVE) Urine RBC /HPF Urine WBC (0-5/HPF) /HPF Ur Epithelial Cells /HPF Urine Bacteria (0-FEW/HPF) /HPF Meds: Medications Discontinued Medications Generic Name Dose Route Start Last Admin Trade Name Yazanq PRN Reason Stop Dose Admin Acetaminophen 325 mg 05/16/17 23:36 05/17/17 00:14 Tylenol PO 05/16/17 23:37 325 mg NOW ONE Administration Amoxicillin/Clavulanate Potassium 1 tab 05/17/17 01:45 05/17/17 01:52 Augmentin 500 Mg\125 Mg PO 05/17/17 01:46 1 tab ONETIME ONE Administration Enoxaparin Sodium 95 mg 05/17/17 01:45 05/17/17 01:53 Lovenox SUBCUT 05/17/17 01:46 95 mg ONETIME ONE Administration Iopamidol 100 ml 05/16/17 23:36 05/16/17 23:55 Isovue-370 (76%) IVPUSH 05/16/17 23:37 75 ml ONETIME ONE Administration - Re-Assessments/Exams Free Text/Narrative Re-Assessment/Exam: 05/17/17 01:[address] Joya who states will come to re-eval' 05/17/17 01:46 Dr Joya arrived eval' & discussed Tx with pt & family. Departure - Departure Time of Disposition: 02:25 Disposition: Home, Self-Care 01 Condition: Good Clinical Impression: UTI (urinary tract infection) Qualifiers: Urinary tract infection type: acute cystitis Hematuria presence: with hematuria Qualified Code(s): N30.01 - Acute cystitis with hematuria Pulmonary embolism Qualifiers: Pulmonary embolism type: other Chronicity: acute Acute cor pulmonale presence: without acute cor pulmonale Qualified Code(s): I26.99 - Other pulmonary embolism without acute cor pulmonale - Discharge Information Instructions: Fever, Adult, [id number] Forms: ED Department Discharge Additional Instructions: 1) rest and avoid vigorous activity 2) follow up with family doctor tomorrow per appoint; 3) return if there is any change or concern - My Orders Last 24 Hours: My Active Orders 05/16/17 22:05 CULTURE BLOOD [BC] Stat 05/17/17 01:27 EKG 12 Lead [EKG Documentation Completion] [RC] STAT - Assessment/Plan Last 24 Hours: My Active Orders 05/16/17 22:05 CULTURE BLOOD [BC] Stat 05/17/17 01:27 EKG 12 Lead [EKG Documentation Completion] [RC] STAT
[2017-05-17] MEDS ORDERED: Enoxaparin 100 MG/1 ML Syringe SUBCUT ONE (01:45)
[2017-05-17] MEDS ORDERED: Amoxicillin/Clavulanate K 500-125 MG Tab PO ONE (01:45)
--- NOTE | 2017-05-17 02:18 | PCM.SN ---
- Free Text/Narrative Note: EMERGENCY DEPARTMENT CONSULTATION SUBJECTIVE: I was called by Dr. Grady regarding Karol, who is 6 days from spontaneous vaginal delivery. She presented to the ED with mid-upper back pain that extends toward the right shoulder. This has been varying in intensity since delivery. She also noted some dysuria over the past couple of days. She did develop UTIs after both of her previous deliveries. She has had a fever that was noted to be up to 102 degrees in the ED. She denies any chest pain, shortness of breath, dizziness or lightheadedness. No personal or family history of blood clots. Dr. Grady ordered a urinalysis which was consistent with UTI. He also ordered a D-dimer, which was 1360 as expected in a state. He did order a CT scan which showed a small PE on the right upper side. Her vital signs were stable. No hypoxia or tachypnea. OBJECTIVE: Cardiovascular: Regular rate and rhythm, no murmur Respiratory: Lungs clear to auscultation; no wheezes or rhonchi Abdominal: Soft, nontender, no CVA tenderness ASSESSMENT/PLAN: 1. pulmonary embolism 2. Urinary tract infection Advised patient that she does have a small pulmonary embolism. I am not certain if this is causing her pain as the PE was noted to be quite tiny. I did order an EKG and reviewed it. There were no signs of hypertrophy. Given that she is medically stable, she can be treated outpatient. She will receive 1 dose of Lovenox 1 mg/kg tonight and follow-up in clinic with me tomorrow. If her insurance will cover it, I anticipate starting her on Xarelto tomorrow. She will need 3-6 months of treatment. Based on the size of the PE, I am anticipating 3 months of therapy. She will also receive a dose of oral Augmentin for her UTI. If patient is not feeling better, we may also need to consider an echocardiogram to rule out cardiomyopathy. Reasons to return sooner were reviewed with the patient and her mother. 40 minutes was spent in consultation in the ED. Alisia Joya MD
--- NOTE | 2017-05-17 11:42 | EKG ---
05/17/2017 - LEANDRO TURK - EKG per my reading shows sinus tachycardia at the rate of 111. [facility] /[id number]
== END 2017-05-17 02:25 | disposition home or self-care (01) ==
LOC: DL.ED 21:22
DX: I26.99 Other pulmonary embolism without acute cor pulmonale (principal); N30.01 Acute cystitis with hematuria; Z88.8 Allergy status to other drugs, medicaments and biological substances; Z79.899 Other long term (current) drug therapy; Z98.890 Other specified postprocedural states; Z87.891 Personal history of nicotine dependence
CPT/HCPCS: 36415; 71260; 80053; 81001; 83605; 85025; 85379; 87040; 93005; 96372; 99285; A9270; J1650; Q9967

== ENCOUNTER 2020-12-19 00:33 | Emergency (ER) | payer OTHER ==
[2020-12-19] MEDS ORDERED: LORazepam 0.5 MG Tab PO ONE ×2 (00:45→01:44)
--- NOTE | 2020-12-19 01:09 | EDM.PDOCBH ---
ED HPI GENERAL MEDICAL PROBLEM - General Stated Complaint: ANXIETY ATTACK Time Seen by Provider: 12/19/20 00:45 Source of Information: Reports: Patient History Limitations: Reports: No Limitations - History of Present Illness INITIAL COMMENTS - FREE TEXT/NARRATIVE: This 34 yo female patient reports to the ED due to an acute onset of shortness of breath. The patient describes her symptoms as if the room was closing in on her. The patient reports she had a recent visit in the clinic for some shortness of breath and was started on a medication that she takes 2 times per day for a possible post COVID respiratory complication. The patient reports she has been taking that medication as prescribed. The patient also reports she has had a "very bad week" with "increased stress". The patient reports she is supposed to be taking Cymbalta, but has missed her doses for the past 2 days. The patient reports she does have Ativan at home for acute anxiety, but did not take the medication as she has never had anything like this happen. The p Onset: Today Duration: Minutes:, Constant Location: Reports: Chest Quality: Reports: Other Severity: Severe Improves with: Reports: None Worsens with: Reports: None Context: Reports: Other Associated Symptoms: Reports: Shortness of Breath - Related Data Allergies Allergy/AdvReac Type Severity Reaction Status Date / Time aspirin Allergy Nausea Verified 12/19/20 00:56 cefaclor [From Ceclor] Allergy Rash Verified 12/19/20 00:56 theophylline anhydrous Allergy Rash Verified 12/19/20 00:56 [From Theolair] Home Meds: Home Meds Omeprazole [Prilosec] 20 mg PO DAILY 12/10/13 [History] Budesonide [Pulmicort Flexhaler] 1 puff INH BID 12/19/20 [History] DULoxetine HCl [Cymbalta] 30 mg PO DAILY 12/19/20 [History] Past Medical History - Past Health History Medical/Surgical History: Denies Medical/Surgical History 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 ED EXAM, BEHAVIORAL HEALTH - Physical Exam Exam: See Below Exam Limited By: No Limitations General Appearance: Alert, WD/WN, Anxious, Moderate Distress Eye Exam: Bilateral Eye: EOMI, Normal Inspection, PERRL Ears: Normal External Exam, Normal Canal, Hearing Grossly Normal, Normal TMs Nose: Normal Inspection, Normal Mucosa, No Blood Throat/Mouth: Normal Inspection, Normal Lips, Normal Teeth, Normal Gums, Normal Oropharynx, Normal Voice, No Airway Compromise Head: Atraumatic, Normocephalic Respiratory/Chest: No Respiratory Distress, Lungs Clear, Normal Breath Sounds, No Accessory Muscle Use, Chest Non-Tender Cardiovascular: No Edema, No Gallop, No JVD, No Murmur, No Rub, Tachycardia GI/Abdominal: Normal Bowel Sounds, Soft, Non-Tender, No Organomegaly, No Distention, No Abnormal Bruit, No Mass (Female) Exam: Deferred Rectal (Female) Exam: Deferred Back Exam: Normal Inspection, Full Range of Motion, NT Extremities: Normal Inspection, Normal Range of Motion, Non-Tender, Normal Capillary Refill, No Pedal Edema Neurological: Alert, CN II-XII Intact, Normal Cognition, Normal Gait, Normal Reflexes, No Motor/Sensory Deficits, Oriented x 3 Psychiatric: Alert, Normal Cognition, Oriented, Restless, Tearful Skin Exam: Warm, Dry, Intact, Normal color, No rash COURSE, BEHAVIORAL HEALTH COMP - Course Vital Signs: Last Vital Signs Temp 36.9 C 12/19/20 01:30 Pulse 93 12/19/20 01:30 Resp 20 12/19/20 01:30 BP 138/80 12/19/20 01:30 Pulse Ox 98 12/19/20 01:30 Orders, Labs, Meds: Medications Discontinued Medications Generic Name Dose Route Start Last Admin Trade Name Yazanq PRN Reason Stop Dose Admin Lorazepam 0.5 mg 12/19/20 00:45 12/19/20 00:54 Lorazepam 0.5 Mg Tab PO 12/19/20 00:46 0.5 mg ONETIME ONE Administration Lorazepam 0.5 mg 12/19/20 01:44 12/19/20 01:50 Lorazepam 0.5 Mg Tab PO 12/19/20 01:45 0.5 mg ONETIME ONE Administration Ondansetron HCl 4 mg 12/19/20 01:15 12/19/20 01:25 Ondansetron 4 Mg Tab.Dis PO 12/19/20 01:16 4 mg ONETIME ONE Administration Re-Assessment/Re-Exam: The patient reports she is currently feeling better, but still has times when she feels like she can not catch her breath. An order was placed for another dose of Ativan (0.5 mg). Departure - Departure Time of Disposition: 02:01 Disposition: Home, Self-Care 01 Condition: Fair Clinical Impression: Anxiety attack - Discharge Information *PRESCRIPTION DRUG MONITORING PROGRAM REVIEWED*: Not Applicable *COPY OF PRESCRIPTION DRUG MONITORING REPORT IN PATIENT OMAIRA: Not Applicable Instructions: Panic Attack, [id number], Managing Anxiety, Adult Forms: ED Department Discharge Care Plan Goals: The patient was advised of the examination results during the visit. The patient was given oral doses of Ativan and Zofran while in the ED. The patient was encourage to continue to take her prescription medications as directed. If the patient has any additional symptoms or concerns, the patient should either return to the emergency department or visit her primary care facility. Sepsis Event Note (ED) - Evaluation Sepsis Screening Result: No Definite Risk - Focused Exam Vital Signs: Vital Signs Temp Pulse Resp BP Pulse Ox 12/19/20 01:30 36.9 C 93 20 138/80 98 12/19/20 01:12 89 13 143/88 H 98 12/19/20 00:46 36.6 C 102 H 22 H 137/90 100
[2020-12-19] MEDS ORDERED: Ondansetron 4 MG Tab.DIS PO ONE (01:15)
[2020-12-19 01:52] VITALS: BP 138/80; PULSE 93
== END 2020-12-19 02:10 | disposition home or self-care (01) ==
LOC: DL.ED 00:33
DX: F41.9 Anxiety disorder, unspecified (principal); K21.9 Gastro-esophageal reflux disease without esophagitis; Z79.899 Other long term (current) drug therapy; Z88.8 Allergy status to other drugs, medicaments and biological substances; Z88.1 Allergy status to other antibiotic agents; Z88.3 Allergy status to other anti-infective agents
CPT/HCPCS: 99283; A9270-GY

== ENCOUNTER 2021-05-16 06:23 | Day surgery (SDC) | payer OTHER ==
[~2021-05-16 06:23] MED LIST: Midazolam 1 MG/ML 2 ML SDV ONE; fentaNYL 100 MCG/2 ML SDV ONE
[2021-05-16] MEDS ORDERED: fentaNYL 100 MCG/2 ML SDV IV ONE ×3 (06:24→07:46)
[2021-05-16] MEDS ORDERED: Midazolam 1 MG/ML 2 ML SDV IV ONE ×3 (06:24→07:47)
[2021-05-16] MEDS ORDERED: Dextrose 5%-0.45% NaCl 1,000 ML IV SCH (06:30)
[2021-05-16 10:33] VITALS: BP 135/89; PULSE 65
--- NOTE | 2021-05-16 12:01 | OR ---
DATE: 05/16/2021 PROCEDURE: Esophagogastroduodenoscopy and multiple pinch biopsies. INSTRUMENT USED: [id number] Olympus video panendoscope. PREMEDICATIONS: No oral or topical anesthesia used. Fentanyl 100 mcg intravenous, Versed 2 mg intravenous. The procedure was done under pulse oximetry, BP recording, and cafeteria monitor. INDICATION: The patient with persistent longstanding heartburn, dyspepsia, and abdominal bloating, unexplained and not responsive to medical measures, on PPI. Esophagogastroduodenoscopy is performed for detection of any active erosive lesions, Khan esophagus and/or malignancy also under consideration, H pylori status to be determined, small bowel biopsies to be obtained for celiac disease, endoscopic hemostasis therapy if needed. PROCEDURE IN DETAIL: The scope was passed with ease. Adequate visualization of the esophagus was made from proximal to distal areas. No upper esophageal lesions identified. No distal esophageal stricture. No uphill or downhill esophageal varices. No Leida-Starkey tear. No evidence of erosive esophagitis by Elverta criteria. No esophageal polyp or tumor mass identified. Z-line was seen at around 40 cm distal to the oral verge. No proximal gastric varices noted. Gastric fundus examination by retroflexion showed numerous diminutive gastric fundus polyps. Multiple pinch biopsies were obtained from the largest polyp and sent for histopathology. Multiple pinch biopsies were also taken from the gastric antrum and proximal body and sent for PyloriTek test for H pylori and histopathology. No gastric ulcer, malignant mass, or vascular ectasia identified. Duodenal bulb showed no ulcer. Visualized second part of the duodenum was unremarkable. Multiple pinch biopsies, 4 in number were taken from different areas of the second part of the duodenum and tissues were also obtained from the duodenal bulb at 9 and 12 o'clock positions and sent for any histopathologic evidence of celiac disease. No bleeding was noted from any of the visualized areas at the completion of examination. Photographs were taken of the duodenal bulb, gastric antrum, fundus, and distal esophagus. IMPRESSION: Gastric fundus polyps. The patient tolerated the procedure well. [facility] /[id number]
== END 2021-05-16 10:08 | disposition home or self-care (01) ==
LOC: DL.ENDO 06:23
PROVIDERS: ATTEND Internal Medicine Gastroenterology
DX: K31.7 Polyp of stomach and duodenum (principal); K29.50 Unspecified chronic gastritis without bleeding; K31.89 Other diseases of stomach and duodenum; E66.09 Other obesity due to excess calories; Z88.8 Allergy status to other drugs, medicaments and biological substances; I10 Essential (primary) hypertension; K21.9 Gastro-esophageal reflux disease without esophagitis; Z90.49 Acquired absence of other specified parts of digestive tract; Z01.812 Encounter for preprocedural laboratory examination; Z20.822 Contact with and (suspected) exposure to COVID-19; Z68.38 Body mass index [BMI] 38.0-38.9, adult
CPT/HCPCS: 87077; J2250; J3010; J7042; U0002

== ENCOUNTER 2022-01-24 15:02 | Emergency (ER) | payer OTHER | END 2022-01-24 15:17 | disposition left against medical advice (07) | LOC: DL.ED 15:02 | DX: Z53.21 Procedure and treatment not carried out due to patient leaving prior to being seen by health care provider (principal) ==

== ENCOUNTER 2022-06-03 04:41 | Emergency (ER) | payer OTHER ==
[2022-06-03] MEDS ORDERED: Sodium Chloride 0.9% 1,000 ML IV ONE (05:03)
[2022-06-03] MEDS ORDERED: Morphine 2 MG/ML SYRINGE IVPUSH ONE ×2 (05:03→05:31)
[2022-06-26 15:10] LABS: ANION GAP 13.4 mEq/L (7-13); CHLORIDE,CL 103 mmol/L (98-107); SODIUM,NA 141 mmol/L (136-145)
[2022-06-26 15:11] LABS: ESTIMATED GFR 115 mL/min (>=60)
== END 2022-06-03 07:49 | disposition home or self-care (01) ==
LOC: DL.ED 04:41
DX: K76.0 Fatty (change of) liver, not elsewhere classified (principal); M54.50 Low back pain, unspecified; G89.29 Other chronic pain; Z90.49 Acquired absence of other specified parts of digestive tract
CPT/HCPCS: 36415; 74176; 80053; 81003; 81025; 82150; 83605; 83690; 85025; 96361; 96374; 99284; J2270; J7030